=== PATIENT | male | born 1975 | race Caucasian/White ===

== ENCOUNTER 2019-12-23 13:07 | Emergency (ER) | payer OTHER, SELFPAY ==
[2019-12-23 13:20] VITALS: BP 163/90; PULSE 97; RESP 16; TEMP 36.9; O2SAT 100
--- NOTE | 2019-12-23 13:47 | ED.EYEPROB ---
HPI - Eye Problem General Chief complaint: Eye Problems Stated complaint: Eye Pain Time Seen by Provider: 12/23/19 13:26 Source: patient and RN notes reviewed Mode of arrival: ambulatory Limitations: no limitations History of Present Illness HPI Narrative: Patient presents today complaining of irritation to the left eye with photophobia and possible foreign body sensation. States he woke up with these symptoms yesterday morning at 1 AM. Denies drainage or vision changes. Denies known injury MD chief complaint: eye pain and eye redness Related Data Allergies Allergy/AdvReac Type Severity Reaction Status Date / Time aspirin Allergy Unknown ITCHING Verified 12/23/19 13:28 Review of Systems Review of Systems: Narrative: CONSTITUTIONAL: Denies body aches, fever, chills, or sweats. EYES: Denies visual changes. + Redness, photophobia, irritation of left eye ENT: Denies rhinorrhea, congestion, sore throat, or otalgia. CARDIOVASCULAR: Denies chest pain, palpitations, or edema. RESPIRATORY: Denies cough or dyspnea. GASTROINTESTINAL: Denies abdominal pain, nausea, vomiting, or diarrhea. GENITOURINARY: Denies dysuria or hematuria. SKIN: Denies rash, itching, or wounds. MUSCULOSKELETAL: Denies back pain, joint pain, or myalgia. NEUROLOGIC: Denies headache, numbness, tingling, or weakness. PSYCH: Denies depression or anxiety. [facility] Family History Family History (Updated 10/29/13 @ 07:13 by DOCTOR UNKNOWN) Other Cerebrovascular accident Social History Social History Smoking status: Never smoker Alcohol intake: current Comments At time of signature, I have reviewed and agree with nursing past medical, surgical, social and family history unless otherwise noted. Please see nursing chart for further information. There is no relevant family history pertinent to the presenting complaint Exam Narrative: Exam Narrative: GENERAL: Well-appearing, well-nourished, and in no acute distress. HEAD: Normocephalic, atraumatic. EYES: EOMI. PERRL. left eye: injected conjunctiva with mild edema. Lids and lashes normal. Fluorescein uptake to 11 o'clock position of the iris. See procedure note. Right eye normal. ENT: Mucous membranes pink and moist. NECK: Normal AROM. CHEST: No respiratory distress. EXTREMITIES: Normal range of motion. No edema. SKIN: Warm, dry, no rash. Capillary refill normal. Normal skin turgor. NEURO: No focal deficits. Alert and oriented x3. Gait steady. PSYCH: Normal affect. No signs of depression or anxiety. Course Vital Signs Vital signs: Vital Signs Temperature 98.5 F 12/23/19 13:20 Pulse Rate 97 12/23/19 13:20 Respiratory Rate 16 12/23/19 13:20 Blood Pressure 163/90 H 12/23/19 13:20 Pulse Oximetry 100 12/23/19 13:20 Temperature 98.5 F 12/23/19 13:20 Pulse Rate 97 12/23/19 13:20 Respiratory Rate 16 12/23/19 13:20 Blood Pressure 163/90 H 12/23/19 13:20 Pulse Oximetry 100 12/23/19 13:20 Reviewed. Pt has been instructed to follow up with his PCP regarding his elevated blood pressure today. Procedures Other Procedure Procedure 1: Other Procedure: Left eye was anesthetized with 1 drop of tetracaine and anesthesia was achieved. The eye was flushed with eye wash. Lid was inverted and examined. Moistened Qtip was used to sweep underneath the upper eyelid with 0 foreign bodies resulting. Cornea was dyed with fluorescein and 1 abrasions or ulcerations were noted at the 11 o'clock position of the iris. Pt tolerated procedure well. MDM - Eye Problem Differential Diagnosis Differential diagnosis: Likely corneal abrasion, conjunctivitis, acute iritis, periorbital cellulitis, subconjunctival hemorrhage, glaucoma and corneal ulcer Critical Care Time Critical Care Time Critical Care Time: No Discharge Plan Discharge Clinical Impression: Corneal abrasion Qualifiers: Encounter type: initial encounter Laterality: left Qualified Code(s): S05.02XA - In
== END 2019-12-23 13:51 | disposition home or self-care (01) ==
PROVIDERS: Emergency Provider Nurse Practitioner; PCP Family Medicine
DX: S05.02XA Injury of conjunctiva and corneal abrasion without foreign body, left eye, initial encounter (principal); X58.XXXA Exposure to other specified factors, initial encounter
CPT/HCPCS: 99213; A9270; G0463

== ENCOUNTER 2021-10-16 19:25 | Emergency (ER) | payer OTHER, SELFPAY ==
[2021-10-16 19:36] VITALS: BP 156/99; PULSE 87; RESP 16; TEMP 36.7; O2SAT 98
--- NOTE | 2021-10-16 20:26 | ED.SKABFB ---
HPI - Skin/Abscess/Foreign Bdy General Chief complaint: Skin/Abscess/Foreign Body Stated complaint: Wasp Sting Time Seen by Provider: 10/16/21 20:27 Source: patient Mode of arrival: ambulatory Limitations: no limitations History of Present Illness HPI narrative: 46 yo M presents with c/o wasp sting to R wrist and L marcano. Stung a few hours prior to arrival. Took benadryl prior to arrival. Is on second day of medrol dosepak for shoulder injury. No difficulty breathing or swallowing. ambulatory with steady gait. All systems reviewed and negative except as noted above. Related Data Home Medications Medication Instructions Recorded Confirmed amlodipine 10 mg-benazepril 40 mg 1 cap DAILY 10/16/21 10/16/21 capsule atorvastatin 80 mg tablet 80 mg DAILY 10/16/21 10/16/21 gabapentin 300 mg capsule 300 mg BID 10/16/21 10/16/21 methylprednisolone 4 mg tablets in 500 mg DAILY 10/16/21 10/16/21 a dose pack naproxen 500 mg tablet mg 10/16/21 Allergies Allergy/AdvReac Type Severity Reaction Status Date / Time aspirin Allergy Unknown ITCHING Verified 10/16/21 19:57 metoprolol Allergy Itching Verified 10/16/21 19:58 Review of Systems Review of Systems: CONSTITUTIONAL: Denies fever, chills, or sweats. EYES: Denies visual changes, redness, or discharge. ENT: Denies rhinorrhea, congestion, sore throat, or otalgia. CARDIOVASCULAR: Denies chest pain, palpitations, or edema. RESPIRATORY: Denies cough or dyspnea. GASTROINTESTINAL: Denies abdominal pain, nausea, vomiting, or diarrhea. GENITOURINARY: Denies dysuria or hematuria. SKIN: Denies rash or itching. Reports swelling, erythema and warmth to anterior aspect right rest and anterior aspect left marcano from wasp thing. MUSCULOSKELETAL: Denies back pain, joint pain, or myalgia. NEUROLOGIC: Denies headache, numbness, or weakness. PSYCHIATRIC: Denies anxiety or depression. All other systems reviewed are negative, except as documented in HPI. [facility] Family History Family History (Updated 10/29/13 @ 07:13 by DOCTOR UNKNOWN) Other Cerebrovascular accident Social History Social History Smoking status: Never smoker Alcohol intake: current Comments At time of signature, agree with nursing past medical, surgical, social and family history. There is no relevant family history pertinent to the presenting complaint. Exam Narrative: GENERAL: This is a well-nourished, well-developed patient, in no apparent distress. HEAD: normocephalic, atraumatic. EYES: PERRL. Sclera clear/white. Vision is grossly intact. EARS: External ears normal NOSE: External nose normal NECK: Neck supple, non-tender without lymphadenopathy, masses or thyromegaly. CARDIOVASCULAR: Regular rate and rhythm without murmurs, gallops, or rubs. RESPIRATORY: Clear to auscultation. Breath sounds equal bilaterally. No wheezes, rales, or rhonchi. SKIN: warm, Dry, intact with no suspicious lesions or rash, good texture and turgor. swelling, erythema, mild warmth to anterior aspect R wrist and anterior aspect L marcano. NEURO: awake, alert, and oriented to person, place and time. There were no obvious focal neurologic abnormalities. EXTREMITIES: No joint tenderness, effusion, or edema noted. Extrem: Elbow/forearm/wrist images: 1. wasp sting Ankle/foot/toe images: 1. wasp sting Course Course Level of Care: Express Care Visit Vital Signs Vital signs: Vital Signs Temperature 36.7 C 10/16/21 19:36 Pulse Rate 87 10/16/21 19:36 Respiratory Rate 16 10/16/21 19:36 Blood Pressure 156/99 H 10/16/21 19:36 Pulse Oximetry 98 10/16/21 19:36 Oxygen Delivery Room Air 10/16/21 19:36 Temperature 36.7 C 10/16/21 19:36 Pulse Rate 87 10/16/21 19:36 Respiratory Rate 16 10/16/21 19:36 Blood Pressure 156/99 H 10/16/21 19:36 Pulse Oximetry 98 10/16/21 19:36 Oxygen Delivery Room Air 10/16/21 19:36 Reviewed MDM - Skin/Abscess/Foreign Bdy MDM Narrative Medical decision
== END 2021-10-16 20:39 | disposition home or self-care (01) ==
PROVIDERS: Emergency Provider Nurse Practitioner Family
DX: T63.461A Toxic effect of venom of wasps, accidental (unintentional), initial encounter (principal); I10 Essential (primary) hypertension; I25.2 Old myocardial infarction; Z86.73 Personal history of transient ischemic attack (TIA), and cerebral infarction without residual deficits
CPT/HCPCS: 99213; G0463

== ENCOUNTER 2022-02-10 09:19 | Emergency (ER) | payer OTHER, SELFPAY ==
--- NOTE | 2022-02-10 10:31 | ED.URI ---
HPI - URI/Sore Throat General Chief Complaint: Upper Respiratory Infection Stated Complaint: cough,lt ear pain Time Seen by Provider: 02/10/22 10:56 Source: patient and RN notes reviewed Mode of arrival: ambulatory Limitations: no limitations History of Present Illness HPI Narrative: 46-year-old male presents with concern of for fever, cough, muscle pain with coughing, left ear pain. He reports symptoms started earlier this week, his taken to negative COVID test at home. Reports he has been taking multiple [id number]-prctcon medications without relief. MD elicited complaint: fever, cough and other (Ear pain) Related Data Home Medications Medication Instructions Recorded Confirmed amlodipine 10 mg-benazepril 40 mg 1 cap DAILY 10/16/21 02/10/22 capsule atorvastatin 80 mg tablet 80 mg DAILY 10/16/21 02/10/22 gabapentin 300 mg capsule 300 mg BID 10/16/21 02/10/22 famotidine 20 mg tablet 20 mg BID 02/10/22 02/10/22 Allergies Allergy/AdvReac Type Severity Reaction Status Date / Time aspirin Allergy Unknown ITCHING Verified 02/10/22 10:46 metoprolol Allergy Itching Verified 02/10/22 10:46 Review of Systems Review of Systems: CONSTITUTIONAL: Reports malaise, fever. EYES: Denies visual changes, redness, or discharge. ENT: Reports rhinorrhea, congestion, sinus pain, otalgia CARDIOVASCULAR: Denies chest pain, palpitations, or edema. RESPIRATORY: Reports cough. Denies dyspnea. GASTROINTESTINAL: Denies abdominal pain, nausea, vomiting, diarrhea SKIN: Denies rash or itching. MUSCULOSKELETAL: Reports myalgia. NEUROLOGIC: Denies headache. All systems reviewed & are unremarkable except as noted in HPI and below PMFSH Family History Family History (Updated 10/29/13 @ 07:13 by DOCTOR UNKNOWN) Other Cerebrovascular accident Social History Social History Smoking status: Never smoker Alcohol intake: current Comments At time of signature, agree with nursing past medical, surgical, social and family history. There is no relevant family history pertinent to the presenting complaint Exam Narrative: GENERAL: Nontoxic-appearing and in no acute distress. HEAD: Normocephalic EYES: PERRLA, conjunctivae clear ENT: Nares clear, green discharge. Mucous membranes moist. Right TM pearly maxwell with dull light reflex, left TM erythematous and bulging; no tragal tenderness. Oropharynx not erythematous without lesions. Tonsils not enlarged and without exudate, no drooling, no hoarseness, no trismus, uvula midline. NECK: Supple. No lymphadenopathy CHEST: Rhonchi noted in bilateral bases, otherwise Clear to auscultation, breath sounds equal. No wheezing, rales, or stridor. No respiratory distress, speaks in full sentences. HEART: Regular rate and rhythm. No murmur heard. SKIN: Warm, dry, no rash. NEURO: Alert and oriented x3. PSYCH: Normal mood and affect Course Course Emergency Course: Patient is aware of diagnosis, understands and agrees to treatment plan. Anticipatory guidance given. Patient agrees to follow-up as directed and is aware of reasons to seek care at the emergency department. Portions of this record may have been created with voice recognition software Level of Care: Express Care Visit Vital Signs Vital signs: Vital Signs Temperature 98.2 F 02/10/22 10:34 Pulse Rate 94 02/10/22 10:34 Respiratory Rate 18 02/10/22 10:34 Blood Pressure 123/70 02/10/22 10:34 Pulse Oximetry 99 02/10/22 10:34 Oxygen Delivery Room Air 02/10/22 10:34 Temperature 98.2 F 02/10/22 10:34 Pulse Rate 94 02/10/22 10:34 Respiratory Rate 18 02/10/22 10:34 Blood Pressure 123/70 02/10/22 10:34 Pulse Oximetry 99 02/10/22 10:34 Oxygen Delivery Room Air 02/10/22 10:34 Reviewed. MDM - URI/Sore Throat MDM Narrative Medical decision making narrative: Differential diagnosis considered: Ross virus, strep pharyngitis, allergic rhinitis, upper respiratory tract infection, sinusitis, rhinosinusi
[2022-02-10 10:34] VITALS: BP 123/70; PULSE 94; RESP 18; TEMP 36.8; O2SAT 99
== END 2022-02-10 11:16 | disposition home or self-care (01) ==
PROVIDERS: Emergency Provider Nurse Practitioner
DX: H66.92 Otitis media, unspecified, left ear (principal); J10.1 Influenza due to other identified influenza virus with other respiratory manifestations; R06.89 Other abnormalities of breathing
CPT/HCPCS: 87804; 99213; G0463